=== PATIENT | female | born 1975 | race Caucasian/White ===

== ENCOUNTER → 2016-08-23 | Outpatient (CLI) | payer OTHER ==
--- NOTE | 2016-08-24 22:12 | SLEEP ---
DATE OF STUDY: 08/23/2016 ATTENDING PHYSICIAN: Dr. Chris Stephens. The patient is a 41-year-old who weighs 300 pounds with a BMI of 53. The patient's [place] score was 8. A split night study was performed at [facility]. During the night of study, the patient spent 420 minutes in bed and slept for 336 minutes with a sleep efficiency of 80%. Sleep latency was 24 minutes with a REM latency of 139 minutes. Overall, sleep architecture showed increased stage I sleep, normal stage II sleep, increased slow wave and normal REM sleep. During the initial diagnostic portion of the study, the patient slept for 147 minutes. During this time, there were no obstructive apneas, 56 hypopneas, 5 mixed and no central apneas. The patient's apnea-hypopnea index was 25 per hour, supine index 30 per hour and REM index 55 per hour. EKG monitoring revealed normal sinus rhythm, average heart rate was 82 beats per minute. No sustained arrhythmias were observed. PLMS were seen at index of 1 per hour and none caused EEG arousal. Review of nocturnal oximetry study revealed a mean oxygen saturation 98% with lowest of 87%. Only 1% of time oxygen saturation remained between 80% and 89%. The patient met the criteria for CPAP initiation. It was started at 5 cm water and titrated up to 7 cm water. At the final pressure, the patient had 120 minutes of sleep. The patient had supine as well as REM sleep. AHI was ____ 2 per hour and oxygen saturation remained above 91%. The patient used a small sized nasal pillow. IMPRESSION: 1. Moderate sleep apnea-hypopnea syndrome with worsening during supine and REM sleep. Total AHI of 25 per hour with a REM AHI of 55 per hour. 2. No clinically significant nocturnal hypoxia. 3. No clinically significant PLMS. RECOMMENDATIONS: 1. CPAP at 7 cm water completely eliminated the patient's sleep apnea, should be used on a nightly basis. 2. Follow up in 4-6 weeks to assess compliance with CPAP and to document clinical improvement. 3. Weight loss is strongly advised. 4. Avoid [employer] depressants. 5. Cautioned regarding driving until symptoms of sleep apnea resolve with the use of CPAP. ANYI BATISTA MD DR: ALYSIA/maye JOB#: [id number] / [id number] Chris Ballesteros
== END | disposition home or self-care (01) ==
LOC: SLPLAB 18:41
PROVIDERS: ATTEND Internal Medicine Pulmonary Disease
DX: G47.30 Sleep apnea, unspecified (principal)
CPT/HCPCS: 95810